=== PATIENT | female | born 1965 | race Caucasian/White ===

== ENCOUNTER 2020-04-11 14:24 | Emergency (ER) | payer OTHER ==
[~2020-04-11] VITALS: Ht 154.9 cm; Wt 68.0 kg
[2020-04-11 14:25] VITALS: BP 153/85; Ht 154.9 cm; Wt 68.0 kg
== END 2020-04-11 15:05 | disposition home or self-care (01) ==
LOC: ED 14:24
DX: J02.9 Acute pharyngitis, unspecified (principal); I10 Essential (primary) hypertension; Z20.828 Contact with and (suspected) exposure to other viral communicable diseases; Z90.711 Acquired absence of uterus with remaining cervical stump; Z90.89 Acquired absence of other organs
CPT/HCPCS: U0003-CS